=== PATIENT | male | born 1970 | race Hispanic/Latino ===

== ENCOUNTER 2019-05-27 17:18 | Emergency (ER) | payer SELFPAY ==
[~2019-05-27 17:18] MED LIST: AEC81 PO; AMIT50TA3 PO; ATOR40TA71 PO; GABA-529 PO; HUM10VIA6 SQ; LISI-613 PO
== END 2019-05-27 18:08 | disposition home or self-care (01) ==
LOC: EDH 17:18
DX: G89.29 Other chronic pain (principal); M25.561 Pain in right knee; E11.40 Type 2 diabetes mellitus with diabetic neuropathy, unspecified; I10 Essential (primary) hypertension; Z79.4 Long term (current) use of insulin; Z72.0 Tobacco use
CPT/HCPCS: 99281

== ENCOUNTER 2019-06-23 20:27 | Inpatient (IN) | payer OTHER ==
[~2019-06-23] VITALS: Ht 154.9 cm; Wt 117.0 kg
[2019-06-23 20:50] LABS: BASOPHILS % (AUTO) 0.7 % (0.0-5.0); EOSINOPHILS % (AUTO) 1.8 % (0.0-8.0); HEMATOCRIT 42.9 % (42-54); LYMPHOCYTES % (AUTO) 23.1 % (21.0-51.0); MEAN CORPUSCULAR HEMOGLOBIN 28.7 pg (27.0-33.0); MEAN CORPUSCULAR HGB CONC 32.9 g/dL (32.0-36.0); MEAN CORPUSCULAR VOLUME 87.4 fL (79-99); MONOCYTES % (AUTO) 7.6 % (3.0-13.0); NEUTROPHILS % (AUTO) 66.4 % (40.0-77.0); PLATELET COUNT (AUTO) 176 K/uL (130-400); RED BLOOD CELL COUNT(AUTO) 4.91 MIL/uL (4.50-6.20); RED CELL DISTRIBUTION WIDTH 12.3 % (11.0-15.5); WHITE BLOOD COUNT (AUTO) 12.5 K/uL (4.8-10.8)
[2019-06-23 20:59] LABS: CREATININE 1.1 mg/dL (0.5-1.5); POTASSIUM 3.9 mmol/L (3.5-5.1)
[2019-06-23] MEDS ORDERED: ONDANSETRON HCL 4 MG/2 ML VIAL ONE (21:01)
[2019-06-23] MEDS ORDERED: KETOROLAC TROMETHAMINE 30MG/ML ONE (21:02)
[2019-06-23] MEDS ORDERED: ASPIRIN 325 MG TABLET ONE (21:02)
[2019-06-23] MEDS ORDERED: MORPHINE SULFATE 4 MG/1ML SYG ONE (21:03)
[2019-06-23] MEDS ORDERED: SODIUM CHLORIDE 0.9% 1000ML 1,000 ML IV ONE (21:03)
[2019-06-23 21:04] LABS: ALBUMIN 3.4 g/dL (3.5-5.0); BILIRUBIN,TOTAL 0.3 mg/dL (0.2-1.0)
[2019-06-23 21:06] LABS: APPEARANCE,URINE Clear (CLEAR); BILIRUBIN,URINE Negative (NEGATIVE); COLOR,URINE Yellow (YELLOW); GLUCOSE, URINE (UA) 500 mg/dL (NEGATIVE); KETONES,URINE Negative (NEGATIVE); LEUKOCYTE ESTERASE ,URINE Negative (NEGATIVE); NITRATE,URINE Negative (NEGATIVE); OCCULT BLOOD,URINE Negative (NEGATIVE); PH,URINE 6.5 (5.0-8.0); PROTEIN,URINE Negative (NEGATIVE)
[2019-06-23 21:14] LABS: AMPHET/METH SCREEN,URINE NEGATIVE (NEGATIVE); BARBITURATE SCREEN, URINE NEGATIVE (NEGATIVE); BENZODIAZEPINES SCREEN,URINE NEGATIVE (NEGATIVE); CANNABINOID SCREEN,URINE NEGATIVE (NEGATIVE); COCAINE SCREEN,URINE NEGATIVE (NEGATIVE); OPIATE SCREEN,URINE NEGATIVE (NEGATIVE); PHENCYCLIDINE SCREEN,URINE NEGATIVE (NEGATIVE)
[2019-06-23 21:26] LABS: BACTERIA,URINE None Seen /HPF (None Seen); RBC,URINE 0-1 /HPF (0-1); SQUAMOUS EPITHELIAL CELL,UR 0-2 /HPF (0-2); WBC,URINE 0-1 /HPF (0-1)
[2019-06-23] MEDS ORDERED: ZOSYN 3.375GM+NS 50ML 50 ML IV ONE (21:53)
[2019-06-24] MEDS ORDERED: ONDANSETRON HCL 4 MG/2 ML VIAL IVP PRN
[2019-06-24] MEDS ORDERED: SODIUM CHLORIDE 0.9% 1000ML 1,000 ML IV ONE (00:56)
[2019-06-24] MEDS ORDERED: MORPHINE SULFATE 2 MG/ML 1ML SYG ONE ×2 (00:56→05:25)
[2019-06-24 05:29] LABS: BASOPHILS % (AUTO) 0.9 % (0.0-5.0); EOSINOPHILS % (AUTO) 2.7 % (0.0-8.0); HEMATOCRIT 42.5 % (42-54); LYMPHOCYTES % (AUTO) 27.5 % (21.0-51.0); MEAN CORPUSCULAR HEMOGLOBIN 28.7 pg (27.0-33.0); MEAN CORPUSCULAR HGB CONC 32.7 g/dL (32.0-36.0); MEAN CORPUSCULAR VOLUME 87.6 fL (79-99); MONOCYTES % (AUTO) 8.5 % (3.0-13.0); PLATELET COUNT (AUTO) 159 K/uL (130-400); RED BLOOD CELL COUNT(AUTO) 4.85 MIL/uL (4.50-6.20); RED CELL DISTRIBUTION WIDTH 12.3 % (11.0-15.5); WHITE BLOOD COUNT (AUTO) 9.7 K/uL (4.8-10.8)
[2019-06-24 05:35] LABS: HEMOGLOBIN A1C 7.7 % (4.0-6.0)
[2019-06-24 05:45] LABS: ALANINE AMINOTRANSFERASE 27 U/L (12-78); ALBUMIN 3.2 g/dL (3.5-5.0); ASPARTATE AMINOTRANSFERASE 20 U/L (10-37); BILIRUBIN,TOTAL 0.6 mg/dL (0.2-1.0); CARBON DIOXIDE 26 mmol/L (21-32); CHLORIDE 106 mmol/L (101-111); CHOLESTEROL 145 mg/dL (<200); CREATININE 0.9 mg/dL (0.5-1.5); GLOMERULAR FILTR. RATE CALC 95 mL/min (>60); GLUCOSE,RANDOM 118 mg/dL (70-105); HDL CHOLESTEROL 38 mg/dL (29-71); LDL DIRECT 96 mg/dL (0-99); POTASSIUM 4.4 mmol/L (3.5-5.1); SODIUM SERUM 139 mmol/L (136-145); TOTAL PROTEIN, SERUM 6.6 g/dL (6.0-8.3); TRIGLYCERIDES 110 mg/dL (30-200); UREA NITROGEN, BLOOD 14 mg/dL (7-18)
[2019-06-24] MEDS: INSULIN HUMULIN R 100 UNIT/ML 3ML SQ SCH ×5 (06:00→23:28)
[2019-06-24] MEDS: ZOSYN 3.375GM+NS 50ML 50 ML IV SCH ×2 (09:00→20:19)
[2019-06-24] MEDS: FAMOTIDINE/PF 20 MG/2 ML VIAL IV SCH ×2 (09:00→20:19)
[2019-06-24] MEDS ORDERED: ZOSYN 3.375GM+NS 50ML 50 ML IV ONE (09:31)
[2019-06-24] MEDS ORDERED: FAMOTIDINE/PF 20 MG/2 ML VIAL IV ONE (09:31)
[2019-06-24] MEDS ORDERED: MORPHINE SULFATE 4 MG/1ML SYG ONE (10:25)
[2019-06-24] MEDS ORDERED: ONDANSETRON HCL 4 MG/2 ML VIAL ONE (10:25)
[2019-06-24 12:00] VITALS: BP 142/85
--- NOTE | 2019-06-24 14:58 | NUR ---
HOME MEDICATIONS Patient stated he does not have them available. Made aware to have family or friends bring them; verbalized and demonstrated understanding.
[2019-06-24] MEDS: SODIUM CHLORIDE 0.9% 1000ML 1,000 ML IV SCH ×2 (15:02)
[2019-06-24] MEDS: MORPHINE SULFATE 2 MG/ML 1ML SYG IVP PRN ×2 (15:03→20:20)
[2019-06-24 16:00] VITALS: BP 129/81
--- NOTE | 2019-06-24 16:30 | NUR ---
DR. MERRITT Patient is NPO and has been asking if he can eat. He was educated on doctor's orders and NPO status. He asked if he will be seen by Dr. Merritt today. Patient was seen by Dr. Merritt's Javier Evans in ER and patient states he was told Dr. Merritt would see him today. Called Dr. Merritt's office. Spoke to [facility], stated not to know if Dr. Merritt will see patient or not and she would page Pillo Evans. Pending Pillo to call back.
[2019-06-24 20:00] VITALS: BP 131/84
[2019-06-24] MEDS: LACTATED RINGERS 1000ML 1,000 ML IV SCH (20:20)
[2019-06-25] VITALS (24 sets, daily range): BP systolic 112–151; BP diastolic 56–94
[2019-06-25] MEDS: MORPHINE SULFATE 2 MG/ML 1ML SYG IVP PRN ×5 (00:35→22:30)
[2019-06-25 04:41] LABS: BASOPHILS % (AUTO) 0.5 % (0.0-5.0); EOSINOPHILS % (AUTO) 1.8 % (0.0-8.0); HEMATOCRIT 43.6 % (42-54); LYMPHOCYTES % (AUTO) 24.3 % (21.0-51.0); MEAN CORPUSCULAR HEMOGLOBIN 28.5 pg (27.0-33.0); MEAN CORPUSCULAR HGB CONC 32.3 g/dL (32.0-36.0); MEAN CORPUSCULAR VOLUME 88.1 fL (79-99); MONOCYTES % (AUTO) 8.7 % (3.0-13.0); NEUTROPHILS % (AUTO) 64.4 % (40.0-77.0); PLATELET COUNT (AUTO) 181 K/uL (130-400); RED BLOOD CELL COUNT(AUTO) 4.95 MIL/uL (4.50-6.20); RED CELL DISTRIBUTION WIDTH 12.2 % (11.0-15.5); WHITE BLOOD COUNT (AUTO) 9.2 K/uL (4.8-10.8)
[2019-06-25 04:51] LABS: POTASSIUM 4.5 mmol/L (3.5-5.1)
[2019-06-25] MEDS: INSULIN HUMULIN R 100 UNIT/ML 3ML SQ SCH ×3 (05:38→18:00)
[2019-06-25] MEDS: LACTATED RINGERS 1000ML 1,000 ML IV SCH ×3 (08:20→21:50)
[2019-06-25] MEDS: FAMOTIDINE/PF 20 MG/2 ML VIAL IV SCH ×2 (09:56→20:55)
[2019-06-25] MEDS: ZOSYN 3.375GM+NS 50ML 50 ML IV SCH ×2 (09:56→20:55)
--- NOTE | 2019-06-25 10:02 | NUR ---
TO SURGERY Taken to OR suite at this time.
[2019-06-25] MEDS ORDERED: SODIUM CHLORIDE 0.9% 1000ML 1,000 ML IV ONE (10:04)
[2019-06-25] MEDS ORDERED: BUPIVACAINE/PF 0.5% 30ML VIAL ONE (10:14)
--- NOTE | 2019-06-25 10:15 | NUR ---
POTENTIAL FOR INFECTION: SHAVED ENTIRE ABDOMEN PER GERARD HICKS.
[2019-06-25] MEDS ORDERED: ONDANSETRON HCL 4 MG/2 ML VIAL ONE (10:16)
[2019-06-25] MEDS ORDERED: MIDAZOLAM HCL 1 MG/ML 2ML VIAL ONE (10:16)
[2019-06-25] MEDS ORDERED: FENTANYL CITRATE PF 50 MCG/1 ML 5ML AMP IV ONE (10:16)
[2019-06-25] MEDS ORDERED: PROPOFOL 10 MG/ML 20ML VIAL IV ONE (10:16)
[2019-06-25] MEDS ORDERED: DEXAMETHASONE SOD PHOSPHATE 10MG/ML 1ML VIAL ONE (10:16)
[2019-06-25] MEDS ORDERED: ROCURONIUM 10MG/1ML SYR 10 MG/ML ML ONE (10:16)
[2019-06-25] MEDS ORDERED: NEOSTIGMINE 5MG/5ML SYR IV ONE (10:20)
[2019-06-25] MEDS ORDERED: GLYCOPYRROLATE 1 MG/5 ML SYRINGE ONE (10:20)
--- NOTE | 2019-06-25 10:20 | NUR ---
CM NOTE PER PRIMARY NURSE, PAOLA GUERRA, PATIENT NOT IN ROOM AND IN SURGERY FOR [employer] [place]. CM TO FOLLOW UP ACCORDINGLY. PENDING SELF REFERRAL PACKET TO BE GIVEN TO PATIENT AND INITIAL ASSESSMENT. Addendum: 06/25/19 at 1022 by AMITA CALLAHAN RN CM Amended: Links added.
[2019-06-25] MEDS ORDERED: ONDANSETRON HCL 4 MG/2 ML VIAL IVP PRN (12:00)
[2019-06-25] MEDS ORDERED: MEPERIDINE-PF 25 MG/ML SYG ONE (12:21)
--- NOTE | 2019-06-25 15:53 | NUR ---
SEBASTIAN NOTE Patient went to surgery for laparoscopic cholecystectomy. Came back to room. Initially O2 saturation on room air was 91%. Placed on O2 2L via N/C. O2 saturtion increased to 97%. He also had education by RT to do IS and patient has been compliant. Diet has been advanced to clear liquids. He was medicated for pain with morphine 2mg IV. Comfortable at this time.
[2019-06-26] VITALS: BP 128/84
[2019-06-26] MEDS: INSULIN HUMULIN R 100 UNIT/ML 3ML SQ SCH ×3 (00:29→12:13)
[2019-06-26] MEDS: LACTATED RINGERS 1000ML 1,000 ML IV SCH ×2 (01:11→11:00)
[2019-06-26 04:14] VITALS: BP 134/82
[2019-06-26 05:45] LABS: BASOPHILS % (AUTO) 0.2 % (0.0-5.0); HEMATOCRIT 41.7 % (42-54); LYMPHOCYTES % (AUTO) 8.5 % (21.0-51.0); MEAN CORPUSCULAR HEMOGLOBIN 28.6 pg (27.0-33.0); MEAN CORPUSCULAR HGB CONC 33.1 g/dL (32.0-36.0); MEAN CORPUSCULAR VOLUME 86.5 fL (79-99); MONOCYTES % (AUTO) 6.5 % (3.0-13.0); NEUTROPHILS % (AUTO) 84.5 % (40.0-77.0); PLATELET COUNT (AUTO) 191 K/uL (130-400); RED BLOOD CELL COUNT(AUTO) 4.82 MIL/uL (4.50-6.20); RED CELL DISTRIBUTION WIDTH 11.9 % (11.0-15.5); WHITE BLOOD COUNT (AUTO) 10.4 K/uL (4.8-10.8)
[2019-06-26 06:07] LABS: ALBUMIN 3.3 g/dL (3.5-5.0); BILIRUBIN,TOTAL 0.6 mg/dL (0.2-1.0); POTASSIUM 4.3 mmol/L (3.5-5.1); TOTAL PROTEIN, SERUM 6.9 g/dL (6.0-8.3)
[2019-06-26 08:00] VITALS: BP 126/80
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
[2019-06-26] MEDS: FAMOTIDINE/PF 20 MG/2 ML VIAL IV SCH (08:13)
[2019-06-26] MEDS ORDERED: INSULIN HUMULIN 70/30 100 UNIT/ML 3ML SQ SCH (08:45)
[2019-06-26] MEDS: ZOSYN 3.375GM+NS 50ML 50 ML IV SCH (09:00)
[2019-06-26 12:00] VITALS: BP 136/87
--- NOTE | 2019-06-26 15:48 | NUR ---
D/C PLAN DAWN spoke to pt regarding d/c planning. Pt is ind. and lives alone. Denies having any DME. CM provided community resources packet. Pt states he follows up at [facility]. Plan to home. CM to f/u. Addendum: 06/26/19 at 1549 by JOHN COWAN CM Amended: Links added.
--- NOTE | 2019-06-26 17:02 | NUR ---
NOTE DISCHARGE INSTRUCTIONS GIVEN AT THIS TIME. REFER TO DC SUMMARY FOR DETAILS.
== END 2019-06-26 17:15 | disposition home or self-care (01) | DRG 419 ==
LOC: EDH 20:27 → EDHIP 20:28 → 3DH 06-24 11:52
PROVIDERS: ADMIT Internal Medicine; ATTEND Internal Medicine
PROC: 0FT44ZZ Resection of Gallbladder, Percutaneous Endoscopic Approach (ICD-10-PCS; principal; 2019-06-25 10:34)
DX: K80.00 Calculus of gallbladder with acute cholecystitis without obstruction (principal); E11.65 Type 2 diabetes mellitus with hyperglycemia; E78.00 Pure hypercholesterolemia, unspecified; K76.0 Fatty (change of) liver, not elsewhere classified; E11.42 Type 2 diabetes mellitus with diabetic polyneuropathy; I10 Essential (primary) hypertension; E66.01 Morbid (severe) obesity due to excess calories; E78.5 Hyperlipidemia, unspecified; Z82.3 Family history of stroke; Z82.49 Family history of ischemic heart disease and other diseases of the circulatory system; Z83.3 Family history of diabetes mellitus; Z79.899 Other long term (current) drug therapy; Z79.82 Long term (current) use of aspirin
CPT/HCPCS: 36415; 71045; 76705; 80048; 80053; 80061; 80305; 81001; 82948; 83036; 83690; 84145; 84484; 85025; 93005; G0378; J1100; J1815; J1885; J2175; J2250; J2270; J2405; J2543; J2704; J2710; J3010; J3490; J7030; J7120

== ENCOUNTER → 2023-09-30 | Outpatient (CLI) | payer MEDICAID ==
[~2023-09-30] MED LIST changes: +GADOTERATE MEGLUMINE 10 MMOL/20 ML VIAL IV ONE; -LISI-613 PO; +LISI20TA24 PO
== END | disposition home or self-care (01) ==
LOC: RAH 08:43
PROVIDERS: ATTEND Otolaryngology
DX: H92.01 Otalgia, right ear (principal)
CPT/HCPCS: 70553; A9575